=== PATIENT | female | born 1975 | race Caucasian/White ===

== ENCOUNTER 2018-10-28 19:13 | Emergency (ER) | payer MEDICARE, MEDICAID ==
[~2018-10-28] VITALS: Ht 167.6 cm; Wt 100.0 kg
[2018-10-28 20:00] LABS: BASOPHILS % (AUTO) 0.8 % (0-1); EOSINOPHILS # (AUTO) 0.2 X10'3 (0-0.9); EOSINOPHILS % (AUTO) 2.9 % (0-6); HEMATOCRIT 39.2 % (35.0-45.0); HEMOGLOBIN 12.8 g/dl (12.0-16.0); LYMPHOCYTES # (AUTO) 2.3 X10'3 (1.1-4.8); LYMPHOCYTES % (AUTO) 38.2 % (21-51); MEAN CORPUSCULAR HEMOGLOBIN 27.5 PG (27.0-31.0); MEAN CORPUSCULAR HGB CONC 32.7 g/dL (33.0-36.5); MEAN PLATELET VOLUME 8.3 FL (7.4-10.4); MONOCYTES # (AUTO) 0.4 X10'3 (0-0.9); MONOCYTES % (AUTO) 6.1 % (2-12); NEUTROPHILS # (AUTO) 3.1 X10'3 (1.8-7.7); PLATELET COUNT 235 X10'3 (140-440); RED BLOOD COUNT 4.66 X10'6 (4.20-5.60); RED CELL DISTRIBUTION WIDTH 14.4 % (11.5-14.5)
[2018-10-28 20:10] LABS: ALANINE AMINOTRANSFERASE 19 U/L (12-78); ALBUMIN 3.1 G/DL (3.4-5.0); ALBUMIN/GLOBULIN RATIO 0.9 (1.1-1.5); ALKALINE PHOSPHATASE 58 IU/L (46-116); ANION GAP 3 (8-16); BILIRUBIN,TOTAL 0.3 MG/DL (0.1-1.0); BLOOD UREA NITROGEN 11 MG/DL (7-18); BUN/CREATININE RATIO 12.2 (6.6-38.0); CALCIUM 8.6 MG/DL (8.5-10.1); CHLORIDE 106 MMOL/L (99-107); GLUCOSE 89 MG/DL (70-104); PARTIAL THROMBOPLASTIN TIME 23 SECONDS (22-32); POTASSIUM 3.8 MMOL/L (3.5-5.1); PROTHROMBIN TIME 10.3 SECONDS (9.0-12.0); SODIUM 139 MMOL/L (135-145); TOTAL CARBON DIOXIDE 30.3 MMOL/L (24-32); TOTAL PROTEIN 6.6 G/DL (6.4-8.2); eGFR 68 ML/MIN
[2018-10-28 20:17] LABS: ASPARTATE AMINO TRANSFERASE 11 U/L (10-37)
[2018-10-28 20:22] LABS: CLARITY,URINE CLEAR (Clear); COLOR,URINE YELLOW (Yellow); GLUCOSE, URINE NEGATIVE (Neg); KETONES,URINE NEGATIVE (Neg); LEUKOCYTE ESTERASE ,URINE NEGATIVE (Neg); NITRITES, URINE NEGATIVE (Neg); OCCULT BLOOD,URINE NEGATIVE (Neg); PROTEIN,URINE TRACE mg/dl (Neg); UROBILINOGEN,URINE 0.2 E.U/dL (0.2-1.0)
[2018-10-28 20:23] LABS: UA COLLECTION TYPE CLN CATCH MIDSTREAM
[2018-10-28 20:34] LABS: BACTERIA,URINE FEW /HPF (Neg); RBC,URINE 0-2 /HPF (0-2); SQUAMOUS EPITHELIAL CELL,UR MODERATE /LPF (FEW); WBC,URINE 0-4 /HPF (0-4)
[2018-10-28 20:35] LABS: MUCUS STRANDS FEW /LPF (Neg)
--- NOTE | 2018-10-28 21:05 | NUR ---
pt back to room [address]
[2018-10-28] MEDS ORDERED: normal saline 1000ML IV soln IVB ONE (21:15)
[2018-10-28] MEDS ORDERED: morphine 4 MG/ML inj SYRINge IV ONE (21:55)
[2018-10-28] MEDS ORDERED: SULF1TAB49 PO (22:17)
[2018-10-28 22:42] VITALS: BP 139/83
== END 2018-10-28 22:44 | disposition home or self-care (01) ==
LOC: ER 19:13
DX: R55 Syncope and collapse (principal); K21.9 Gastro-esophageal reflux disease without esophagitis; I12.9 Hypertensive chronic kidney disease with stage 1 through stage 4 chronic kidney disease, or unspecified chronic kidney disease; N18.9 Chronic kidney disease, unspecified; F17.200 Nicotine dependence, unspecified, uncomplicated; Z88.0 Allergy status to penicillin; Z88.8 Allergy status to other drugs, medicaments and biological substances; Z88.5 Allergy status to narcotic agent; Z88.1 Allergy status to other antibiotic agents
CPT/HCPCS: 36415; 70450; 71045; 80053; 81001; 83880; 84484; 85025; 85610; 85730; 86885; 86900; 86901; 93005; 96361; 96374; 99284; J2270; J7030